=== PATIENT | male | born 1985 | race Two or more races ===

== ENCOUNTER 2019-10-02 08:56 | Observation (INO) | payer OTHER ==
[2019-10-02] MEDS ORDERED: VANCOMYCIN IV ONE ×2 (09:04)
[2019-10-02] MEDS ORDERED: Sodium Chloride 0.9% 2.5 ML Syringe FLUSH PRN ×2 (09:04→12:07)
[2019-10-02] MEDS ORDERED: Sodium Chloride 0.9% 10 ML Syringe FLUSH PRN ×2 (09:04→12:07)
[2019-10-02] MEDS ORDERED: WATER IV ONE ×2 (09:04)
[2019-10-02] MEDS ORDERED: Piperacillin/Tazobactam 4.5 GM in Sodium Chloride 0.9% 100 ML IV ONE ×2 (09:04→09:30)
[2019-10-02] MEDS ORDERED: DEXTROSE 5% IV ONE ×2 (09:04)
--- NOTE | 2019-10-02 09:19 | EDM.PDOC ---
ED [facility] GENERAL MEDICAL PROBLEM - General Chief Complaint: General Stated Complaint: INFECTION POST SURGERY Time Seen by Provider: 10/02/19 09:01 - History of Present Illness INITIAL COMMENTS - FREE TEXT/NARRATIVE: HISTORY AND PHYSICAL: History of present illness: This 34-year-old male presents emergency department complaining of right lower quadrant abdominal pain. He reports that he has an abscess there. Review of the record and historical information provided by the patient shows that he had an appendectomy done in September 01, 2019. He is postoperative day #31 from his appendectomy that was originally laparoscopic but converted to open given the size and conditions during the surgical evaluation. Per the discharge summary the patient had a fever on postoperative day #2 and was placed on intravenous levofloxacin and metronidazole and sent home on antibiotics. He had a subsequent follow-up CT scan on September 18 which I have detailed below which found that he has an intra-abdominal and intramuscular wall abscess. He returns today because he has worsening and now has an eruption of pus. He states that there were some drains placed in his wound which are no longer there. Dr. Porter was the operating surgeon and I will contact her. I have reviewed the CT scan report from September 19, 2019, it shows that the appendix was removed and the findings of the CT show right anterior abdominal wall musculature has an abscess, also a small abscess adjacent to the cecum. There is also hemangioma noted in the liver. He rates his pain as moderate to severe. Review of systems: A 10-point review of systems, other than pertinent positives and negatives as stated per HPI, is otherwise negative. Past medical history: As per history of present illness and as reviewed below otherwise noncontributory. Surgical history: As per history of present illness and as reviewed below otherwise noncontributory. Social history: No reported history of drug or alcohol abuse. Family history: As per history of present illness and as reviewed below otherwise noncontributory. Physical exam: VITAL SIGNS: Reviewed. GENERAL: Mild distress. Appears to be in acute pain HEAD: No signs of head trauma. EYES: Pupils are equal. Extraocular motions intact. EARS: Hearing grossly intact. MOUTH: Oropharynx is normal. NECK: No adenopathy, no JVD. CHEST: Chest with clear breath sounds bilaterally. No wheezes, rales, or rhonchi. CARDIAC: Regular rate and rhythm. Normal S1 and S2, without murmurs, gallops, or rubs. VASCULAR: Peripheral pulses normal and equal in all extremities. ABDOMEN: Soft, there is a surgical incision in the right lower quadrant that has purulent material erupting from it. It is not actively draining. There is surrounding mild cellulitis/erythema. The area is exquisitely tender to touch. MUSCULOSKELETAL: Good range of motion of all major joints. Extremities without clubbing, cyanosis or edema. NEUROLOGIC EXAM: Alert and oriented x 3. No focal sensory or motor deficits. Speech normal. Follows commands. PSYCHIATRIC: Mood normal. SKIN: No rash or lesions. Initial Differential Diagnosis & Plan: Abdominal wall abscess, intra-abdominal abscess, fistula The patient appears to have a significant infection. I will give initial IV fluids, draw labs and blood cultures, and provide antibiotic coverage with Zosyn and vancomycin. This should give good anaerobic, aerobic, antipseudomonal and anti-MRSA coverage. I will contact the operating surgeon. Definitive disposition and diagnosis as appropriate pending reevaluation and review of above. Right Lower Abdomen Pain Score (Numeric/FACES): 0 - Related Data Allergies Allergy/AdvReac Type Severity Reaction Status Date / Time No Known Allergies Allergy Verified 10/02/19 09:13 Home Meds: Home Meds . [No Known Home Meds] 09/01/19 [History] Past Medical History HEENT History: Reports: None Cardiovascular History: Reports: None Respiratory History: Reports: None Genitourinary History: Reports: None Musculoskeletal History: Reports: None Neurological History: Reports: None Psychiatric History: Reports: None Endocrine/Metabolic History: Reports: None Hematologic History: Reports: None Immunologic History: Reports: None Oncologic (Cancer) History: Reports: None Dermatologic History: Reports: None - Infectious Disease History Infectious Disease History: Reports: None - Past Surgical History Head Surgeries/Procedures: Reports: None GI Surgical History: Reports: Hernia, Abdominal Other GI Surgeries/Procedures: Repair 03/2019 Social & Family History - Family History Family Medical History: Noncontributory - Caffeine Use Caffeine Use: Reports: None ED ROS GENERAL - Review of Systems Review Of Systems: Unable To Obtain (noted) Reason Not Obtained: noted ED EXAM, GENERAL - Physical Exam Exam: See Below (noted) EKG INTERPRETATION EKG Interpretation Comments: 12 lead EKG interpretation Obtained: October 02, 2019 at 9:47 AM Rhythm: Sinus Rate: 93 [place]: Normal Intervals: Normal ST/T Segments: No acute ischemic changes Interpretation: Sinus Rhythm Course - Vital Signs Last Recorded V/S: Last Vital Signs Temp 96.8 F L 10/02/19 09:00 Pulse 99 10/02/19 11:19 Resp 14 10/02/19 11:19 BP 113/71 10/02/19 11:19 Pulse Ox 97 10/02/19 11:19 - Orders/Labs/Meds Orders: Active Orders 24 hr Category Date Time Status Admission Status [Patient Status] [ADT] Stat ADT 10/02/19 11:50 Ordered Cardiac Monitoring [RC] CONTINUOUS Care 10/02/19 09:06 Active EKG Documentation Completion [RC] STAT Care 10/02/19 09:04 Active Overnight Pulse Oximetry [RC] Click to Edit Care 10/02/19 09:08 Active CULTURE BLOOD [BC] Stat Lab 10/02/19 09:08 Received CULTURE BLOOD [BC] Stat Lab 10/02/19 09:30 Received Meropenem Premix [Meropenem] 500 mg Med 10/02/19 11:45 Active Premix Bag 1 bag IV Q8H Sodium Chloride 0.9% [Saline Flush] Med 10/02/19 09:04 Active 10 ml FLUSH ASDIRECTED PRN Sodium Chloride 0.9% [Saline Flush] Med 10/02/19 09:04 Active 2.5 ml FLUSH ASDIRECTED PRN Blood Culture x2 Reflex Set [OM.PC] Stat Oth 10/02/19 09:05 Ordered Pulse Oximetry Continuous Monitoring [OM.PC] Routine Oth 10/02/19 09:04 Ordered Saline Lock Insert [OM.PC] Stat Oth 10/02/19 09:05 Ordered Severe Sepsis Onset Time [OM.PC] Stat Oth 10/02/19 09:05 Ordered Medication Orders Meropenem/Sodium Chloride 500 (mg/ Premix) 50 mls @ 100 mls/hr IV Q8H EDUARD Sodium Chloride (Saline Flush) 10 ml FLUSH ASDIRECTED PRN PRN Reason: Keep Vein Open Last Admin: 10/02/19 09:26 Dose: 10 ml Sodium Chloride (Saline Flush) 2.5 ml FLUSH ASDIRECTED PRN PRN Reason: Keep Vein Open Last Admin: 10/02/19 09:26 Dose: 2.5 ml Labs: Laboratory Tests 10/02/19 10/02/19 10/02/19 Range/Units 09:08 09:08 09:08 WBC 11.65 H (4.0-11.0) K/uL RBC 5.02 (4.50-5.90) M/uL Hgb 14.5 (13.0-17.0) g/dL Hct 44.4 (38.0-50.0) % MCV 88.4 (80.0-98.0) fL MCH 28.9 (27.0-32.0) pg MCHC 32.7 (31.0-37.0) g/dL RDW Std Deviation 40.2 (28.0-62.0) fl RDW Coeff of Mabel 13 (11.0-15.0) % Plt Count 365 (150-400) K/uL MPV 10.80 (7.40-12.00) fL Neut % (Auto) 67.9 (48.0-80.0) % Lymph % (Auto) 22.7 (16.0-40.0) % Wright % (Auto) 8.8 (0.0-15.0) % Eos % (Auto) 0.3 (0.0-7.0) % Baso % (Auto) 0.3 (0.0-1.5) % Neut # (Auto) 7.9 H (1.4-5.7) K/uL Lymph # (Auto) 2.7 H (0.6-2.4) K/uL Wright # (Auto) 1.0 H (0.0-0.8) K/uL Eos # (Auto) 0.0 (0.0-0.7) K/uL Baso # (Auto) 0.0 (0.0-0.1) K/uL Nucleated RBC % 0.0 /100WBC Nucleated RBCs # 0 K/uL INR 1.22 APTT 29.9 (18.6-31.3) SEC Lactate (0.20-2.00) mmol/L Sodium 140 (136-148) mmol/L Potassium 3.7 (3.5-5.1) mmol/L Chloride 102 (98-107) mmol/L Carbon Dioxide 28.4 (21.0-32.0) mmol/L BUN 11 (7.0-18.0) mg/dL Creatinine 1.1 (0.8-1.3) mg/dL Est Cr Clr Drug Dosing 91.55 mL/min Estimated GFR (MDRD) > 60.0 ml/min Glucose 111 H (74-106) mg/dL Calcium 9.3 (8.5-10.1) mg/dL Total Bilirubin 0.5 (0.2-1.0) mg/dL AST 29 (15-37) IU/L ALT 76 H (14-63) IU/L Alkaline Phosphatase 92 (46-116) U/L C-Reactive Protein 1.20 H (0.00-0.90) mg/dL Total Protein 8.4 H (6.4-8.2) g/dL Albumin 4.1 (3.4-5.0) g/dL Globulin 4.3 H (2.6-4.0) g/dL Albumin/Globulin Ratio 1.0 (0.9-1.6) Urine Color Urine Appearance Urine pH (5.0-8.0) Ur Specific [place] (1.001-1.035) Urine Protein (NEGATIVE) mg/dL Urine Glucose (UA) (NEGATIVE) mg/dL Urine Ketones (NEGATIVE) mg/dL Urine Occult Blood (NEGATIVE) Urine Nitrite (NEGATIVE) Urine Bilirubin (NEGATIVE) Urine Urobilinogen (<2.0) EU/dL Ur Leukocyte Esterase (NEGATIVE) Urine RBC (0-2/HPF) Urine WBC (0-5/HPF) Ur Epithelial Cells (NONE-FEW) Urine Bacteria (NEGATIVE) 10/02/19 10/02/19 Range/Units 09:08 10:15 WBC (4.0-11.0) K/uL RBC (4.50-5.90) M/uL Hgb (13.0-17.0) g/dL Hct (38.0-50.0) % MCV (80.0-98.0) fL MCH (27.0-32.0) pg MCHC (31.0-37.0) g/dL RDW Std Deviation (28.0-62.0) fl RDW Coeff of Mabel (11.0-15.0) % Plt Count (150-400) K/uL MPV (7.40-12.00) fL Neut % (Auto) (48.0-80.0) % Lymph % (Auto) (16.0-40.0) % Wright % (Auto) (0.0-15.0) % Eos % (Auto) (0.0-7.0) % Baso % (Auto) (0.0-1.5) % Neut # (Auto) (1.4-5.7) K/uL Lymph # (Auto) (0.6-2.4) K/uL Wright # (Auto) (0.0-0.8) K/uL Eos # (Auto) (0.0-0.7) K/uL Baso # (Auto) (0.0-0.1) K/uL Nucleated RBC % /100WBC Nucleated RBCs # K/uL INR APTT (18.6-31.3) SEC Lactate 1.3 (0.20-2.00) mmol/L Sodium (136-148) mmol/L Potassium (3.5-5.1) mmol/L Chloride (98-107) mmol/L Carbon Dioxide (21.0-32.0) mmol/L BUN (7.0-18.0) mg/dL Creatinine (0.8-1.3) mg/dL Est Cr Clr Drug Dosing mL/min Estimated GFR (MDRD) ml/min Glucose (74-106) mg/dL Calcium (8.5-10.1) mg/dL Total Bilirubin (0.2-1.0) mg/dL AST (15-37) IU/L ALT (14-63) IU/L Alkaline Phosphatase (46-116) U/L C-Reactive Protein (0.00-0.90) mg/dL Total Protein (6.4-8.2) g/dL Albumin (3.4-5.0) g/dL Globulin (2.6-4.0) g/dL Albumin/Globulin Ratio (0.9-1.6) Urine Color YELLOW Urine Appearance CLEAR Urine pH 5.5 (5.0-8.0) Ur Specific [place] 1.025 (1.001-1.035) Urine Protein NEGATIVE (NEGATIVE) mg/dL Urine Glucose (UA) NEGATIVE (NEGATIVE) mg/dL Urine Ketones NEGATIVE (NEGATIVE) mg/dL Urine Occult Blood NEGATIVE (NEGATIVE) Urine Nitrite NEGATIVE (NEGATIVE) Urine Bilirubin NEGATIVE (NEGATIVE) Urine Urobilinogen 0.2 (<2.0) EU/dL Ur Leukocyte Esterase NEGATIVE (NEGATIVE) Urine RBC 0-1 (0-2/HPF) Urine WBC 0-1 (0-5/HPF) Ur Epithelial Cells RARE (NONE-FEW) Urine Bacteria RARE (NEGATIVE) Meds: Medications Generic Name Dose Route Start Last Admin Trade Name Freq PRN Reason Stop Dose Admin Meropenem/Sodium Chloride 500 50 mls @ 100 mls/hr 10/02/19 11:45 mg/ Premix IV Q8H EDUARD Sodium Chloride 10 ml 10/02/19 09:04 10/02/19 09:26 Saline Flush FLUSH 10 ml ASDIRECTED PRN Administration Keep Vein Open Sodium Chloride 2.5 ml 10/02/19 09:04 10/02/19 09:26 Saline Flush FLUSH 2.5 ml ASDIRECTED PRN Administration Keep Vein Open Discontinued Medications Generic Name Dose Route Start Last Admin Trade Name Freq PRN Reason Stop Dose Admin Piperacillin Sod/Tazobactam 100 mls @ 200 mls/hr 10/02/19 09:04 10/02/19 09: 27 Sod 4.5 gm/ Sodium Chloride IV 10/02/19 09:33 Not Given STAT ONE Sodium Chloride 2,400 mls @ 2,400 mls/hr 10/02/19 09:04 10/02/19 09:26 Normal Saline IV 10/02/19 10:03 2,400 mls/hr NOW STA Administration Vancomycin HCl 1.6 gm/ 250 mls @ 167 mls/hr 10/02/19 09:04 10/02/19 09:33 Dextrose/Water IV 10/02/19 10:33 Not Given ONETIME ONE Piperacillin Sod/Tazobactam 100 mls @ 200 mls/hr 10/02/19 09:30 10/02/19 09: 30 Sod 4.5 gm/ Sodium Chloride IV 10/02/19 09:59 200 mls/hr STAT ONE Administration Vancomycin HCl 1.5 gm/ Premix 300 mls @ 200.408 mls/hr 10/02/19 09:30 09:34 IV 10/02/19 10:59 200.408 mls/hr ONETIME ONE Administration Iopamidol 100 ml 10/02/19 10:45 10/02/19 10:46 Isovue Multipack-370 (76%) IVPUSH 10/02/19 10:46 100 ml ONETIME STA Administration - Re-Assessments/Exams Free Text/Narrative Re-Assessment/Exam: 10/02/19 09:[address] Porter, she is aware of the patient. She would much appreciate a CT abdomen pelvis with IV contrast. I have ordered this. She will check in on the progress of the resuscitation and evaluation after the results are back. Free Text/Narrative Re-Assessment/Exam: 10/02/19 11:52 Dr. Porter has come to the bedside and evaluated the patient, reviewed the case and will take the patient to the operating room for washout. She is asked me to give meropenem. Critical Care Note: The patient presented in critical status due to early sepsis requiring IV antibiotics The patient required rapid exam, decision making, and frequent re-evaluations during their time in the Emergency Department. Total Critical Care time exclusive of all other billable procedure time provided by myself 45 minutes Medical decision making: The patient presents to the emergency department with signs of abdominal wall abscess with concern for underlying abscess. Dr. Hernandez will take the patient to the operating room for washout. I have given IV fluids at 30 cc/kg, given initial antibiotics, tailored antibiotics to now available cultures and have evaluated him for electrolyte and metabolic abnormalities. My diagnostic impression: 1. Abdominal wall abscess 2. Intra-abdominal abscess 3. 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 Departure - Departure Time of Disposition: 11:54 Disposition: Refer to Observation Clinical Impression: Appendicitis - Discharge Information *PRESCRIPTION DRUG MONITORING PROGRAM REVIEWED*: Not Applicable *COPY OF PRESCRIPTION DRUG MONITORING REPORT IN PATIENT MINNIE: Not Applicable Referrals: PCP,None [Primary Care Provider] - Forms: ED Department Discharge Sepsis Event Note - Focused Exam Vital Signs: Vital Signs Temp Pulse Resp BP Pulse Ox 10/02/19 11:19 99 14 113/71 97 10/02/19 10:30 92 15 108/70 97 10/02/19 09:37 76 16 108/71 98 10/02/19 09:00 96.8 F L 88 15 121/73 98 Date Exam was Performed: 10/02/19 Time Exam was Performed: 11:52 - My Orders Last 24 Hours: My Active Orders 10/02/19 09:04 EKG Documentation Completion [RC] STAT Sodium Chloride 0.9% [Saline Flush] 10 ml FLUSH ASDIRECTED PRN Sodium Chloride 0.9% [Saline Flush] 2.5 ml FLUSH ASDIRECTED PRN Pulse Oximetry Continuous Monitoring [OM.PC] Routine 10/02/19 09:05 Blood Culture x2 Reflex Set [OM.PC] Stat Saline Lock Insert [OM.PC] Stat Severe Sepsis Onset Time [OM.PC] Stat 10/02/19 09:06 Cardiac Monitoring [RC] CONTINUOUS 10/02/19 09:08 Overnight Pulse Oximetry [RC] Click to Edit CULTURE BLOOD [BC] Stat 10/02/19 09:30 CULTURE BLOOD [BC] Stat 10/02/19 11:45 Meropenem Premix [Meropenem] 500 mg Premix Bag 1 bag IV Q8H 10/02/19 11:50 Admission Status [Patient Status] [ADT] Stat - Assessment/Plan Last 24 Hours: My Active Orders 10/02/19 09:04 EKG Documentation Completion [RC] STAT Sodium Chloride 0.9% [Saline Flush] 10 ml FLUSH ASDIRECTED PRN Sodium Chloride 0.9% [Saline Flush] 2.5 ml FLUSH ASDIRECTED PRN Pulse Oximetry Continuous Monitoring [OM.PC] Routine 10/02/19 09:05 Blood Culture x2 Reflex Set [OM.PC] Stat Saline Lock Insert [OM.PC] Stat Severe Sepsis Onset Time [OM.PC] Stat 10/02/19 09:06 Cardiac Monitoring [RC] CONTINUOUS 10/02/19 09:08 Overnight Pulse Oximetry [RC] Click to Edit CULTURE BLOOD [BC] Stat 10/02/19 09:30 CULTURE BLOOD [BC] Stat 10/02/19 11:45 Meropenem Premix [Meropenem] 500 mg Premix Bag 1 bag IV Q8H 10/02/19 11:50 Admission Status [Patient Status] [ADT] Stat
[2019-10-02 09:50] LABS: BLOOD UREA NITROGEN,BUN 11 mg/dL (7.0-18.0); CARBON DIOXIDE,CO2 28.4 mmol/L (21.0-32.0); CHLORIDE,CL 102 mmol/L (98-107); GLUCOSE RANDOM 111 mg/dL (74-106); POTASSIUM,K 3.7 mmol/L (3.5-5.1); SODIUM,NA 140 mmol/L (136-148)
[2019-10-02] MEDS ORDERED: Iopamidol 755 MG/ML 500 ML Multipack Bottle IVPUSH STA (10:45)
--- NOTE | 2019-10-02 10:46 | CR ---
Chest: Portable view of the chest was obtained. Comparison: No prior chest imaging is available. Heart size and mediastinum are normal. Lungs are clear with no acute parenchymal change is seen. Bony structures are grossly intact. Impression: 1. Nothing acute is seen on portable chest x-ray. Diagnostic code #1 This report was dictated in MDT
--- NOTE | 2019-10-02 11:19 | CT ---
CT abdomen and pelvis Technique: Multiple axial sections were obtained from above the dome of the diaphragm inferiorly through the pubic symphysis. Intravenous contrast was utilized. No oral contrast has been given. Comparison: Prior CT abdomen and pelvis exam of 09/19/19. Findings: Visualized lung bases show several minimal pleural-based densities on the left side which are believed to be nonacute. Hyperenhancing abnormality noted within the posterior right lobe of the liver measuring 2.0 cm which I believe represents a hemangioma. No additional abnormality seen within the liver. Spleen appears within normal limits. Adrenal glands show no nodule. Pancreas is within normal limits. Gallbladder contains no calcified gallstones. Kidneys show symmetric contrast enhancement without hydronephrosis or mass. Contrast is seen within the ureters and bladder. Aorta shows no aneurysm. No retroperitoneal adenopathy is seen. Soft tissue defect is noted within the right lower anterolateral abdominal wall. Small low density finding is seen within the subcutaneous fat measuring 2.2 cm most likely due to a small subcutaneous abscess within the fat. There is an area of enhancement within the adjacent musculature with minimal low density center. Low density center measures less than 1 cm. Findings are felt compatible with enhancement from inflammatory reaction due to small abscess. This finding has diminished in size from previous exam. Soft tissue air is noted within the subcutaneous fat. Small amount of fluid is seen within the intra-abdominal cavity adjacent to the above areas containing a small amount of air. This measures 1.6 cm is felt compatible with small residual abscess. This has diminished in size from previous exam. Calcifications are seen within the cecum presumably due to residual appendicoliths. Small tubular structure is seen to extend superiorly off the cecum which may represent the appendix if patient has had no prior appendectomy. No additional pelvic mass or adenopathy is seen. Diverticuli seen within the sigmoid colon without diverticulitis. Impression: 1. Small abscess within the subcutaneous fat within the anterolateral right lower abdominal wall. This measures about 2.2 cm. 2. Small rim-enhancing low density finding within the musculature in the same area compatible with residual abscess which has decreased in size. Low density finding measures about 1 cm. 3. Small intra-abdominal residual abscess is seen measuring 1.6 cm which also has decreased in size from prior exam. 4. Probable hemangioma within the right lobe of the liver. Diagnostic code #3 This report was dictated in MDT
[2019-10-02] MEDS ORDERED: Meropenem Premix 500 MG in Premix Bag 1 BAG IV SCH (11:45)
[2019-10-02] MEDS ORDERED: Sodium Chloride 0.9% 10 ML SDV IV PRN (12:07)
[2019-10-02] MEDS ORDERED: HYDROmorphone 2 MG/ML Syringe IVPUSH PRN (12:07)
--- NOTE | 2019-10-02 12:10 | PCM.HP.2 ---
H&P History of Present Illness - General Date of Service: 10/02/19 Admit Problem/Dx: Admission Diagnosis/Problem Admission Diagnosis/Problem Incisional abscess Source of Information: Patient History Limitations: Reports: No Limitations - History of Present Illness Initial Comments - Free Text/Narative: Patient is a 34 year old male who underwent a laparoscopic converted to open appendectomy one month ago. Two weeks after surgery he presented to my clinic with a post operative infection. He was transfered to [place], [place] for IR drain placement. He had an intra-abdominal drain placed in a tasha-colonic abscess and in his 6 cm intramuscular abscess. The bacteria was found to be resistant to multiple oral antibiotics, it was sensitive to carbapenems and zosyn. He had the drains removed with scant serosanguinous fluid. He developed pain along his incision last night one week after these were removed. It was warm and so he presented to the ER today for evaluation. His vitals were stable. WBC was elevated at 11K. He had a CT performed that showed a very small residual abscess from the last time (1.6cm). He has a subcutaneous abscess measuring 2.2 cm. The abscess that was intramuscular is scant and minimal. Right Lower Abdomen Pain Score (Numeric/FACES): 0 - Related Data Allergies/Adverse Reactions: Allergies Allergy/AdvReac Type Severity Reaction Status Date / Time No Known Allergies Allergy Verified 10/02/19 09:13 Home Medications: Home Meds . [No Known Home Meds] 09/01/19 [History] Past Medical History HEENT History: Reports: None Cardiovascular History: Reports: None Respiratory History: Reports: None Genitourinary History: Reports: None Musculoskeletal History: Reports: None Neurological History: Reports: None Psychiatric History: Reports: None Endocrine/Metabolic History: Reports: None Hematologic History: Reports: None Immunologic History: Reports: None Oncologic (Cancer) History: Reports: None Dermatologic History: Reports: None - Infectious Disease History Infectious Disease History: Reports: None - Past Surgical History Head Surgeries/Procedures: Reports: None GI Surgical History: Reports: Hernia, Abdominal Other GI Surgeries/Procedures: Repair 03/2019 Social & Family History - Family History Family Medical History: Noncontributory - Tobacco Use Smoking Status *Q: Never Smoker Second Hand Smoke Exposure: No - Caffeine Use Caffeine Use: Reports: None - Recreational Drug Use Recreational Drug Use: No H&P Review of Systems - Review of Systems: Review Of Systems: Comprehensive ROS is negative, except as noted in HPI. Exam - Exam Exam: See Below - Vital Signs Vital Signs: Last Vital Signs Temp 36.0 C L 10/02/19 09:00 Pulse 99 10/02/19 11:19 Resp 14 10/02/19 11:19 BP 113/71 10/02/19 11:19 Pulse Ox 97 10/02/19 11:19 Weight: 77.111 kg - Exam General: Alert, Oriented HEENT: Conjunctiva Clear, Mucosa Moist & Malin, Posterior Pharynx Clear Lungs: Normal Respiratory Effort Cardiovascular: Regular Rate GI/Abdominal Exam: Soft, Other (erythematous area surrounding purulent material along the mid portion of the skin) - Patient Data Lab Results Last 24 hrs: Laboratory Results - last 24 hr 10/02/19 10/02/19 10/02/19 Range/Units 09:08 09:08 09:08 WBC 11.65 H (4.0-11.0) K/uL RBC 5.02 (4.50-5.90) M/uL Hgb 14.5 (13.0-17.0) g/dL Hct 44.4 (38.0-50.0) % MCV 88.4 (80.0-98.0) fL MCH 28.9 (27.0-32.0) pg MCHC 32.7 (31.0-37.0) g/dL RDW Std Deviation 40.2 (28.0-62.0) fl RDW Coeff of Mabel 13 (11.0-15.0) % Plt Count 365 (150-400) K/uL MPV 10.80 (7.40-12.00) fL Neut % (Auto) 67.9 (48.0-80.0) % Lymph % (Auto) 22.7 (16.0-40.0) % [place] % (Auto) 8.8 (0.0-15.0) % Eos % (Auto) 0.3 (0.0-7.0) % Baso % (Auto) 0.3 (0.0-1.5) % Neut # (Auto) 7.9 H (1.4-5.7) K/uL Lymph # (Auto) 2.7 H (0.6-2.4) K/uL [place] # (Auto) 1.0 H (0.0-0.8) K/uL Eos # (Auto) 0.0 (0.0-0.7) K/uL Baso # (Auto) 0.0 (0.0-0.1) K/uL Nucleated RBC % 0.0 /100WBC Nucleated RBCs # 0 K/uL INR 1.22 APTT 29.9 (18.6-31.3) SEC Lactate (0.20-2.00) mmol/L Sodium 140 (136-148) mmol/L Potassium 3.7 (3.5-5.1) mmol/L Chloride 102 (98-107) mmol/L Carbon Dioxide 28.4 (21.0-32.0) mmol/L BUN 11 (7.0-18.0) mg/dL Creatinine 1.1 (0.8-1.3) mg/dL Est Cr Clr Drug Dosing 91.55 mL/min Estimated GFR (MDRD) > 60.0 ml/min Glucose 111 H (74-106) mg/dL Calcium 9.3 (8.5-10.1) mg/dL Total Bilirubin 0.5 (0.2-1.0) mg/dL AST 29 (15-37) IU/L ALT 76 H (14-63) IU/L Alkaline Phosphatase 92 (46-116) U/L C-Reactive Protein 1.20 H (0.00-0.90) mg/dL Total Protein 8.4 H (6.4-8.2) g/dL Albumin 4.1 (3.4-5.0) g/dL Globulin 4.3 H (2.6-4.0) g/dL Albumin/Globulin Ratio 1.0 (0.9-1.6) Urine Color Urine Appearance Urine pH (5.0-8.0) Ur Specific [place] (1.001-1.035) Urine Protein (NEGATIVE) mg/dL Urine Glucose (UA) (NEGATIVE) mg/dL Urine Ketones (NEGATIVE) mg/dL Urine Occult Blood (NEGATIVE) Urine Nitrite (NEGATIVE) Urine Bilirubin (NEGATIVE) Urine Urobilinogen (<2.0) EU/dL Ur Leukocyte Esterase (NEGATIVE) Urine RBC (0-2/HPF) Urine WBC (0-5/HPF) Ur Epithelial Cells (NONE-FEW) Urine Bacteria (NEGATIVE) 10/02/19 10/02/19 Range/Units 09:08 10:15 WBC (4.0-11.0) K/uL RBC (4.50-5.90) M/uL Hgb (13.0-17.0) g/dL Hct (38.0-50.0) % MCV (80.0-98.0) fL MCH (27.0-32.0) pg MCHC (31.0-37.0) g/dL RDW Std Deviation (28.0-62.0) fl RDW Coeff of Mabel (11.0-15.0) % Plt Count (150-400) K/uL MPV (7.40-12.00) fL Neut % (Auto) (48.0-80.0) % Lymph % (Auto) (16.0-40.0) % [place] % (Auto) (0.0-15.0) % Eos % (Auto) (0.0-7.0) % Baso % (Auto) (0.0-1.5) % Neut # (Auto) (1.4-5.7) K/uL Lymph # (Auto) (0.6-2.4) K/uL [place] # (Auto) (0.0-0.8) K/uL Eos # (Auto) (0.0-0.7) K/uL Baso # (Auto) (0.0-0.1) K/uL Nucleated RBC % /100WBC Nucleated RBCs # K/uL INR APTT (18.6-31.3) SEC Lactate 1.3 (0.20-2.00) mmol/L Sodium (136-148) mmol/L Potassium (3.5-5.1) mmol/L Chloride (98-107) mmol/L Carbon Dioxide (21.0-32.0) mmol/L BUN (7.0-18.0) mg/dL Creatinine (0.8-1.3) mg/dL Est Cr Clr Drug Dosing mL/min Estimated GFR (MDRD) ml/min Glucose (74-106) mg/dL Calcium (8.5-10.1) mg/dL Total Bilirubin (0.2-1.0) mg/dL AST (15-37) IU/L ALT (14-63) IU/L Alkaline Phosphatase (46-116) U/L C-Reactive Protein (0.00-0.90) mg/dL Total Protein (6.4-8.2) g/dL Albumin (3.4-5.0) g/dL Globulin (2.6-4.0) g/dL Albumin/Globulin Ratio (0.9-1.6) Urine Color YELLOW Urine Appearance CLEAR Urine pH 5.5 (5.0-8.0) Ur Specific [place] 1.025 (1.001-1.035) Urine Protein NEGATIVE (NEGATIVE) mg/dL Urine Glucose (UA) NEGATIVE (NEGATIVE) mg/dL Urine Ketones NEGATIVE (NEGATIVE) mg/dL Urine Occult Blood NEGATIVE (NEGATIVE) Urine Nitrite NEGATIVE (NEGATIVE) Urine Bilirubin NEGATIVE (NEGATIVE) Urine Urobilinogen 0.2 (<2.0) EU/dL Ur Leukocyte Esterase NEGATIVE (NEGATIVE) Urine RBC 0-1 (0-2/HPF) Urine WBC 0-1 (0-5/HPF) Ur Epithelial Cells RARE (NONE-FEW) Urine Bacteria RARE (NEGATIVE) Result Diagrams: 10/02/19 09:08 10/02/19 09:08 Sepsis Event Note - Evaluation Sepsis Screening Result: No Definite Risk - Focused Exam Vital Signs: Vital Signs Temp Pulse Resp BP Pulse Ox 10/02/19 11:19 99 14 113/71 97 10/02/19 10:30 92 15 108/70 97 10/02/19 09:37 76 16 108/71 98 10/02/19 09:00 36.0 C L 88 15 121/73 98 Date Exam was Performed: 10/02/19 Time Exam was Performed: 12:20 - Problem List (1) Incisional abscess SNOMED Code(s): 17387396 ICD Code: T81.49XA - INFECTION FOLLOWING A PROCEDURE, OTHER SURGICAL SITE, INIT Status: Acute Current Visit: Yes (2) Postoperative infection SNOMED Code(s): 39370191 ICD Code: T81.40XA - INFECTION FOLLOWING A PROCEDURE, UNSPECIFIED, INIT Status: Acute Current Visit: Yes Problem List Initiated/Reviewed/Updated: Yes Orders Last 24hrs: Active Orders 24 hr Category Date Time Status Patient Status [ADT] Routine ADT 10/02/19 12:07 Ordered Cardiac Monitoring [RC] CONTINUOUS Care 10/02/19 09:06 Active EKG Documentation Completion [RC] STAT Care 10/02/19 09:04 Active Intake and Output [RC] QSHIFT Care 10/02/19 12:08 Ordered Overnight Pulse Oximetry [RC] Click to Edit Care 10/02/19 09:08 Active Oxygen Therapy [RC] PRN Care 10/02/19 12:07 Ordered RT Incentive Spirometry [RC] Q1HWA Care 10/02/19 12:07 Ordered Up ad Karis [RC] ASDIRECTED Care 10/02/19 12:07 Ordered Vital Signs [RC] PER UNIT ROUTINE Care 10/02/19 12:07 Ordered Regular Diet [DIET] Diet 10/02/19 Dinner Ordered CBC W/O DIFF,HEMOGRAM [HEME] AM Lab 10/03/19 05:11 Ordered CULTURE BLOOD [BC] Stat Lab 10/02/19 09:08 Received CULTURE BLOOD [BC] Stat Lab 10/02/19 09:30 Received Acetaminophen/oxyCODONE [Percocet 325-5 MG] Med 10/02/19 12:07 Ordered 2 tab PO Q4H PRN HYDROmorphone [Dilaudid] Med 10/02/19 12:07 Ordered 0.5 mg IVPUSH Q1H PRN Meropenem Premix [Meropenem] 500 mg Med 10/02/19 11:45 Active Premix Bag 1 bag IV Q8H Sodium Chloride 0.9% @ 125 MLS/HR (1000ml) Med 10/02/19 12:15 Ordered Sodium Chloride 0.9% [Normal Saline] 1,000 ml IV ASDIRECTED Sodium Chloride 0.9% [Normal Saline] Med 10/02/19 12:07 Ordered 10 ml IV ASDIRECTED PRN Sodium Chloride 0.9% [Saline Flush] Med 10/02/19 09:04 Active 10 ml FLUSH ASDIRECTED PRN Sodium Chloride 0.9% [Saline Flush] Med 10/02/19 12:07 Ordered 10 ml FLUSH ASDIRECTED PRN Sodium Chloride 0.9% [Saline Flush] Med 10/02/19 09:04 Active 2.5 ml FLUSH ASDIRECTED PRN Sodium Chloride 0.9% [Saline Flush] Med 10/02/19 12:07 Ordered 2.5 ml FLUSH ASDIRECTED PRN Blood Culture x2 Reflex Set [OM.PC] Stat Ot 10/02/19 09:05 Ordered Peripheral IV Insertion Adult [OM.PC] Urgent Oth 10/02/19 12:07 Ordered Pulse Oximetry Continuous Monitoring [OM.PC] Routine Ot 10/02/19 09:04 Ordered Saline Lock Insert [OM.PC] Stat Ot 10/02/19 09:05 Ordered Severe Sepsis Onset Time [OM.PC] Stat Ot 10/02/19 09:05 Ordered Resuscitation Status Routine Resus Stat 10/02/19 12:07 Ordered Medication Orders Meropenem/Sodium Chloride 500 (mg/ Premix) 50 mls @ 100 mls/hr IV Q8H EDUARD Sodium Chloride (Saline Flush) 10 ml FLUSH ASDIRECTED PRN PRN Reason: Keep Vein Open Last Admin: 10/02/19 09:26 Dose: 10 ml Sodium Chloride (Saline Flush) 2.5 ml FLUSH ASDIRECTED PRN PRN Reason: Keep Vein Open Last Admin: 10/02/19 09:26 Dose: 2.5 ml Assessment/Plan Comment:: Patient will be taken to the OR for an incision and drainage of this superficial abscess. I explained that he will have an open wound afterwards that will need daily dressing changes. Worst case scenario; should I find a bigger abscess or a connection to the intra-abdominal cavity I will explore the wound and perform whatever procedure is necessary to repair the area. The patient and I discussed the need for IV antibiotics afterwards as well as po antibiotics to follow. We discussed the risks of bleeding or further infection. He verbalized understanding and wishes to proceed.
--- NOTE | 2019-10-02 12:11 | PCM.PREANE ---
Preanesthetic Assessment - Anesthesia/Transfusion/Family Hx Anesthesia History: Prior Anesthesia Without Reaction Family History of Anesthesia Reaction: No Transfusion History: No Prior Transfusion(s) - Review of Systems General: No Symptoms Pulmonary: No Symptoms Cardiovascular: No Symptoms Gastrointestinal: Abdominal Pain Neurological: No Symptoms Other: Reports: None - Physical Assessment NPO Status Date: 10/01/19 Vital Signs: Last Vital Signs Temp 96.8 F L 10/02/19 09:00 Pulse 99 10/02/19 11:19 Resp 14 10/02/19 11:19 BP 113/71 10/02/19 11:19 Pulse Ox 97 10/02/19 11:19 Height: 5 ft 8 in Weight: 77.111 kg ASA Class: 2E Mental Status: Alert & Oriented x3 Airway Class: Mallampati = 2 ROM/Head Extension: Full Lungs: Other (defered) Cardiovascular: Other (defered) - Lab Values: Laboratory Last Values WBC 11.65 K/uL (4.0-11.0) H 10/02/19 09:08 RBC 5.02 M/uL (4.50-5.90) 10/02/19 09:08 Hgb 14.5 g/dL (13.0-17.0) 10/02/19 09:08 Hct 44.4 % (38.0-50.0) 10/02/19 09:08 MCV 88.4 fL (80.0-98.0) 10/02/19 09:08 MCH 28.9 pg (27.0-32.0) 10/02/19 09:08 MCHC 32.7 g/dL (31.0-37.0) 10/02/19 09:08 RDW Std Deviation 40.2 fl (28.0-62.0) 10/02/19 09:08 RDW Coeff of Mabel 13 % (11.0-15.0) 10/02/19 09:08 Plt Count 365 K/uL (150-400) 10/02/19 09:08 MPV 10.80 fL (7.40-12.00) 10/02/19 09:08 Neut % (Auto) 67.9 % (48.0-80.0) 10/02/19 09:08 Lymph % (Auto) 22.7 % (16.0-40.0) 10/02/19 09:08 [place] % (Auto) 8.8 % (0.0-15.0) 10/02/19 09:08 Eos % (Auto) 0.3 % (0.0-7.0) 10/02/19 09:08 Baso % (Auto) 0.3 % (0.0-1.5) 10/02/19 09:08 Neut # (Auto) 7.9 K/uL (1.4-5.7) H 10/02/19 09:08 Lymph # (Auto) 2.7 K/uL (0.6-2.4) H 10/02/19 09:08 [place] # (Auto) 1.0 K/uL (0.0-0.8) H 10/02/19 09:08 Eos # (Auto) 0.0 K/uL (0.0-0.7) 10/02/19 09:08 Baso # (Auto) 0.0 K/uL (0.0-0.1) 10/02/19 09:08 Nucleated RBC % 0.0 /100WBC 10/02/19 09:08 Nucleated RBCs # 0 K/uL 10/02/19 09:08 INR 1.22 10/02/19 09:08 APTT 29.9 SEC (18.6-31.3) 10/02/19 09:08 Lactate 1.3 mmol/L (0.20-2.00) 10/02/19 09:08 Sodium 140 mmol/L (136-148) 10/02/19 09:08 Potassium 3.7 mmol/L (3.5-5.1) 10/02/19 09:08 Chloride 102 mmol/L (98-107) 10/02/19 09:08 Carbon Dioxide 28.4 mmol/L (21.0-32.0) 10/02/19 09:08 BUN 11 mg/dL (7.0-18.0) 10/02/19 09:08 Creatinine 1.1 mg/dL (0.8-1.3) 10/02/19 09:08 Est Cr Clr Drug Dosing 91.55 mL/min 10/02/19 09:08 Estimated GFR (MDRD) > 60.0 ml/min 10/02/19 09:08 Glucose 111 mg/dL (74-106) H 10/02/19 09:08 Calcium 9.3 mg/dL (8.5-10.1) 10/02/19 09:08 Total Bilirubin 0.5 mg/dL (0.2-1.0) 10/02/19 09:08 AST 29 IU/L (15-37) 10/02/19 09:08 ALT 76 IU/L (14-63) H 10/02/19 09:08 Alkaline Phosphatase 92 U/L (46-116) 10/02/19 09:08 C-Reactive Protein 1.20 mg/dL (0.00-0.90) H 10/02/19 09:08 Total Protein 8.4 g/dL (6.4-8.2) H 10/02/19 09:08 Albumin 4.1 g/dL (3.4-5.0) 10/02/19 09:08 Globulin 4.3 g/dL (2.6-4.0) H 10/02/19 09:08 Albumin/Globulin Ratio 1.0 (0.9-1.6) 10/02/19 09:08 Urine Color YELLOW 10/02/19 10:15 Urine Appearance CLEAR 10/02/19 10:15 Urine pH 5.5 (5.0-8.0) 10/02/19 10:15 Ur Specific [place] 1.025 (1.001-1.035) 10/02/19 10:15 Urine Protein NEGATIVE mg/dL (NEGATIVE) 10/02/19 10:15 Urine Glucose (UA) NEGATIVE mg/dL (NEGATIVE) 10/02/19 10:15 Urine Ketones NEGATIVE mg/dL (NEGATIVE) 10/02/19 10:15 Urine Occult Blood NEGATIVE (NEGATIVE) 10/02/19 10:15 Urine Nitrite NEGATIVE (NEGATIVE) 10/02/19 10:15 Urine Bilirubin NEGATIVE (NEGATIVE) 10/02/19 10:15 Urine Urobilinogen 0.2 EU/dL (<2.0) 10/02/19 10:15 Ur Leukocyte Esterase NEGATIVE (NEGATIVE) 10/02/19 10:15 Urine RBC 0-1 (0-2/HPF) 10/02/19 10:15 Urine WBC 0-1 (0-5/HPF) 10/02/19 10:15 Ur Epithelial Cells RARE (NONE-FEW) 10/02/19 10:15 Urine Bacteria RARE (NEGATIVE) 10/02/19 10:15 - Allergies Allergies/Adverse Reactions: Allergies Allergy/AdvReac Type Severity Reaction Status Date / Time No Known Allergies Allergy Verified 10/02/19 09:13 - Anesthesia Plan Pre-Op Medication Ordered: Other (meropenum) - Acknowledgements Anesthesia Type Planned: General Anesthesia Pt an Appropriate Candidate for the Planned Anesthesia: Yes Alternatives and Risks of Anesthesia Discussed w Pt/Guardian: Yes Pt/Guardian Understands and Agrees with Anesthesia Plan: Yes Additional Comments: PMH: abd wall abcess, multidrug resistant organism, NKDA, NPO solids last pm, liquids 7 am today PLAN: GET, contact precautions. COVID 19 test pending PreAnesthesia Questionnaire HEENT History: Reports: None Cardiovascular History: Reports: None Respiratory History: Reports: None Genitourinary History: Reports: None Musculoskeletal History: Reports: None Neurological History: Reports: None Psychiatric History: Reports: None Endocrine/Metabolic History: Reports: None Hematologic History: Reports: None Immunologic History: Reports: None Oncologic (Cancer) History: Reports: None Dermatologic History: Reports: None - Infectious Disease History Infectious Disease History: Reports: None - Past Surgical History Head Surgeries/Procedures: Reports: None GI Surgical History: Reports: Hernia, Abdominal Other GI Surgeries/Procedures: Repair 03/2019 - SUBSTANCE USE Smoking Status *Q: Never Smoker Second Hand Smoke Exposure: No Recreational Drug Use History: No - HOME MEDS Home Medications: Home Meds . [No Known Home Meds] 09/01/19 [History] - CURRENT (IN HOUSE) MEDS Current Meds: Current Medications Meropenem/Sodium Chloride 500 (mg/ Premix) 50 mls @ 100 mls/hr IV Q8H EDUARD Sodium Chloride (Saline Flush) 10 ml FLUSH ASDIRECTED PRN PRN Reason: Keep Vein Open Last Admin: 10/02/19 09:26 Dose: 10 ml Sodium Chloride (Saline Flush) 2.5 ml FLUSH ASDIRECTED PRN PRN Reason: Keep Vein Open Last Admin: 10/02/19 09:26 Dose: 2.5 ml Discontinued Medications Piperacillin Sod/Tazobactam (Sod 4.5 gm/ Sodium Chloride) 100 mls @ 200 mls/hr IV STAT ONE Stop: 10/02/19 09:33 Last Admin: 10/02/19 09:27 Dose: Not Given Sodium Chloride (Normal Saline) 2,400 mls @ 2,400 mls/hr IV NOW STA Stop: 10/02/19 10:03 Last Admin: 10/02/19 09:26 Dose: 2,400 mls/hr Vancomycin HCl 1.6 gm/ (Dextrose/Water) 250 mls @ 167 mls/hr IV ONETIME ONE Stop: 10/02/19 10:33 Last Admin: 10/02/19 09:33 Dose: Not Given Piperacillin Sod/Tazobactam (Sod 4.5 gm/ Sodium Chloride) 100 mls @ 200 mls/hr IV STAT ONE Stop: 10/02/19 09:59 Last Admin: 10/02/19 09:30 Dose: 200 mls/hr Vancomycin HCl 1.5 gm/ Premix 300 mls @ 200.408 mls/hr IV ONETIME ONE Stop: 10/02/19 10:59 Last Admin: 10/02/19 09:34 Dose: 200.408 mls/hr Iopamidol (Isovue Multipack-370 (76%)) 100 ml IVPUSH ONETIME STA Stop: 10/02/19 10:46 Last Admin: 10/02/19 10:46 Dose: 100 ml
[2019-10-02] MEDS ORDERED: fentaNYL 100 MCG/2 ML SDV ONE (12:20)
[2019-10-02] MEDS ORDERED: Propofol 200 MG/20 ML SDV ONE (12:20)
[2019-10-02] MEDS ORDERED: Bupivacaine 0.5% 30 ML SDV ONE (12:20)
[2019-10-02] MEDS ORDERED: Midazolam 1 MG/ML 2 ML SDV ONE (12:20)
[2019-10-02] MEDS ORDERED: Ondansetron 4 MG/2 ML SDV ONE (12:20)
[2019-10-02] MEDS ORDERED: Ketorolac 30 MG/ML SDV ONE (12:21)
[2019-10-02] MEDS ORDERED: Glycopyrrolate 0.2 MG/ML SDV ONE (12:21)
[2019-10-02] MEDS ORDERED: Sugammadex Sodium 200 MG/2 ML VIAL ONE (12:22)
[2019-10-02] MEDS ORDERED: HYDROmorphone 2 MG/ML Syringe ONE (12:45)
--- NOTE | 2019-10-02 14:26 | PCM.OPNOTE ---
- General Post-Op/Procedure Note Date of Surgery/Procedure: 10/02/19 Operative Procedure(s): Incision and drainage incisional abscess Findings: Main abscess cavity was superficial, in the subcutaneous fat under the incision , and measured 5 x 1 x 2 cm in size. Under this, in the muscular layer, was another abscess cavity that measured 3 x 2 x 2 cm in size. This did not appear to communicate with the intraabdominal cavity and fascia felt intact beneath. Pre Op Diagnosis: Incisional abscess Post-Op Diagnosis: same Anesthesia Technique: General ET Tube Primary Surgeon: Sera Porter Fluid Replacement, Intraop: 1,100 EBL in mLs: 20 Condition: Stable
--- NOTE | 2019-10-02 14:37 | PCM.POSTAN ---
POST ANESTHESIA ASSESSMENT - MENTAL STATUS Mental Status: Alert, Oriented - VITAL SIGNS Vital Signs: Last Vital Signs Temp 96.8 F L 10/02/19 09:00 Pulse 98 10/02/19 13:00 Resp 15 10/02/19 13:00 BP 105/77 10/02/19 13:00 Pulse Ox 99 10/02/19 13:00 - RESPIRATORY Respiratory Status: Respiratory Rate WNL, Airway Patent, O2 Saturation Stable - CARDIOVASCULAR CV Status: Pulse Rate WNL, Blood Pressure Stable - GASTROINTESTINAL GI Status: No Symptoms - POST OP HYDRATION Hydration Status: Adequate & Stable
[2019-10-02] MEDS: Sodium Chloride 0.9% 1,000 ML IV SCH (15:13)
[2019-10-02] MEDS: Meropenem 500 MG in Sodium Chloride 0.9% 50 ML IV SCH ×2 (15:53→22:59)
--- NOTE | 2019-10-02 19:24 | OR ---
SURGEON: SERA PORTER MD DATE OF PROCEDURE: 10/02/2019 PREOPERATIVE DIAGNOSIS: Incisional abscess. POSTOPERATIVE DIAGNOSIS: Incisional abscess. PROCEDURE PERFORMED: Incision and drainage, incisional abscess. PRIMARY SURGEON: Sera Porter MD ANESTHESIA: General endotracheal anesthesia. FLUIDS: 1100 mL of crystalloid. ESTIMATED BLOOD LOSS: 20 mL. FINDINGS: Main abscess cavity was superficial in the subcutaneous fat under the incision and measured 5 x 1 x 2 cm in size. Under this, in the muscular layer was another smaller abscess cavity that measured 3 x 2 x 2 cm in size. This did not appear to communicate with the intraabdominal cavity and the fascia felt intact beneath. No evidence of bowel contents. COMPLICATIONS: None. INDICATIONS: The patient is a 34-year-old male who underwent a laparoscopic, converted to open, appendectomy 1 month ago. Two weeks after his procedure, he developed an intramuscular abscess along his previous incision site as well as a small abscess intra-abdominally next to his staple line. These were drained via Interventional Radiology. He was given oral antibiotics. The drains were eventually removed. The initial cultures showed a very resistant E. coli strain that was only sensitive to the Zosyn and carbapenems. Yesterday, the patient began to have pain and swelling along his incision again. He presented to the emergency room for evaluation. He was found to have a mildly elevated white count and CT scan of the abdomen and pelvis showed a small residual abscess next to his staple line, but a larger subcutaneous abscess along his incision above the area where the muscular abscess was. The patient and I discussed the need to perform an incision and drainage in the operating room to obtain adequate washout and drainage. I explained the need for dressing changes afterwards. I described the procedure to the patient. I also consented him for a possible exploratory laparotomy should I encounter any unforeseen complications while in the operating room that will require me to open up the abdomen and take a look at the appendectomy site. We discussed the risks as well, and he verbalized understanding and wished to proceed. PROCEDURE IN DETAIL: The patient was brought into the OR and placed on the OR table in supine position. A time-out was completed verifying the patient's name, age, date of , allergies, and procedure to be performed. General endotracheal anesthesia was induced. The abdomen was prepped and draped in usual standard fashion. I inspected the patient's wound. Even with the prep, the wound started to drain white purulent material. This was sent for Gram stain, anaerobic and aerobic cultures. Then, using a 15 blade, I unroofed the abscess cavity. There was a large amount of superficial purulent material in the superficial abscess cavity. I suctioned all this out and irrigated the wound. I then explored the base of this abscess. There was a small opening at the base of the abscess. I placed my suction catheter into this and it seemed to track medially. I gently, but bluntly opened this deeper abscess cavity. It was smaller in size and measured 3 x 2 x 2 cm. It did not appear to communicate with the intraabdominal cavity and the fascia felt intact beneath it. There was no fecal material that I noted within the wound. The wound was copiously irrigated. I then packed the wound with moistened Kerlix gauze and covered it with dry 4 x 4 dressings and an ABD pad, which were secured to the patient using tape. He tolerated the procedure well and was transferred to the PACU in stable condition. All counts were complete and correct at the end of the case. CHRISTIANO / SILVA /[id number]
[2019-10-02] MEDS: Acetaminophen/oxyCODONE 325-5 MG Tab PO PRN (22:53)
[2019-10-03] MEDS: Sodium Chloride 0.9% 1,000 ML IV SCH ×2 (00:12→07:58)
[2019-10-03] MEDS: Meropenem 500 MG in Sodium Chloride 0.9% 50 ML IV SCH (07:04)
--- NOTE | 2019-10-03 07:24 | PCM.DCSUM1 ---
Discharge Summary - Hospital Course Free Text/Narrative:: Patient is a 34 year old male who presented with an incisional abscess and post operative infection. He underwent a laparoscopic converted to open appendectomy one month ago. He presented 2 weeks after surgery with an abscess next to his staple line in the cecum and a muscular abscess. These were drained percutaneously in [place], [place]. He was placed on oral antibiotics afterwards and had the drains removed when the drainage was minimal. He presented to the ER yesterday with pain warmth and swelling at the incision site. CT scan showed a small residual abscess intra-abdominally and a 2.2 cm subcutaneous abscess. On physical exam I could see fluctuance and purulent material along the incision. He was taken to the OR. The abscess was opened up and was found to mainly be in the subcutaneous fat layer with a small connection to the previous intra- muscular abscess. His cultures show a gram negative jasmyne. This is consistent with his cultures in [place] which show E.Coli which is resistant to multiple drugs but sensitive to carbapenems. He was placed on meropenem overnight. He had little to no pain and remained stable. He had a normal WBC this morning. He underwent his first dressing change. His wound looked healthy with some granulation tissue. He was given dressing change instructions and discharged home. - Discharge Data Discharge Date: 10/03/19 Discharge Disposition: Home, Self-Care 01 Condition: Stable - Referral to Home Health Primary Care Physician: PCP None - Discharge Diagnosis/Problem(s) (1) Incisional abscess SNOMED Code(s): 39823926 ICD Code: T81.49XA - INFECTION FOLLOWING A PROCEDURE, OTHER SURGICAL SITE, INIT Status: Acute Current Visit: Yes (2) Postoperative infection SNOMED Code(s): 65698411 ICD Code: T81.40XA - INFECTION FOLLOWING A PROCEDURE, UNSPECIFIED, INIT Status: Acute Current Visit: Yes - Patient Summary/Data Operative Procedure(s) Performed: Incision and drainage incisional abscess - Patient Instructions Diet: Regular Diet as Tolerated Activity: No Lifting Over 20 Pounds (for 2 weeks ), Rest and Relax Today Driving: Do Not Drive (while on narcotic pain medications ) Showering/Bathing: May Shower Notify Provider of: Fever, Increased Pain, Swelling and Redness, Drainage (pus) - Discharge Plan *PRESCRIPTION DRUG MONITORING PROGRAM REVIEWED*: Not Applicable *COPY OF PRESCRIPTION DRUG MONITORING REPORT IN PATIENT MINNIE: Not Applicable Home Medications: Home Meds . [No Known Home Meds] 09/01/19 [History] Patient Handouts: Ertapenem injection, Skin Abscess, [id number], Incision and Drainage, Care After Referrals: Sera Porter MD [Physician] - 10/07/19 9:45 am - Discharge Summary/Plan Comment DC Time >30 min.: Yes - General Info Date of Service: 10/03/19 Functional Status: Reports: Pain Controlled, Tolerating Diet, Ambulating, Urinating - Review of Systems General: Reports: No Symptoms Pulmonary: Reports: No Symptoms Cardiovascular: Reports: No Symptoms Gastrointestinal: Reports: No Symptoms Musculoskeletal: Reports: No Symptoms Skin: Reports: No Symptoms - Patient Data Vitals - Most Recent: Last Vital Signs Temp 36.9 C 10/03/19 04:00 Pulse 80 10/03/19 04:00 Resp 14 10/03/19 04:00 BP 103/61 10/03/19 04:00 Pulse Ox 97 10/03/19 04:00 Weight - Most Recent: 77.111 kg I&O - Last 24 hours: Intake & Output 10/02/19 10/03/19 10/03/19 22:59 06:59 14:59 Intake Total 680 2080 Output Total 480 1100 Balance 200 980 Lab Results - Last 24 hrs: Laboratory Results - last 24 hr 10/02/19 10/02/19 10/02/19 Range/Units 09:08 09:08 09:08 WBC 11.65 H (4.0-11.0) K/uL RBC 5.02 (4.50-5.90) M/uL Hgb 14.5 (13.0-17.0) g/dL Hct 44.4 (38.0-50.0) % MCV 88.4 (80.0-98.0) fL MCH 28.9 (27.0-32.0) pg MCHC 32.7 (31.0-37.0) g/dL RDW Std Deviation 40.2 (28.0-62.0) fl RDW Coeff of Mabel 13 (11.0-15.0) % Plt Count 365 (150-400) K/uL MPV 10.80 (7.40-12.00) fL Neut % (Auto) 67.9 (48.0-80.0) % Lymph % (Auto) 22.7 (16.0-40.0) % Upton % (Auto) 8.8 (0.0-15.0) % Eos % (Auto) 0.3 (0.0-7.0) % Baso % (Auto) 0.3 (0.0-1.5) % Neut # (Auto) 7.9 H (1.4-5.7) K/uL Lymph # (Auto) 2.7 H (0.6-2.4) K/uL Upton # (Auto) 1.0 H (0.0-0.8) K/uL Eos # (Auto) 0.0 (0.0-0.7) K/uL Baso # (Auto) 0.0 (0.0-0.1) K/uL Nucleated RBC % 0.0 /100WBC Nucleated RBCs # 0 K/uL INR 1.22 APTT 29.9 (18.6-31.3) SEC Lactate (0.20-2.00) mmol/L Sodium 140 (136-148) mmol/L Potassium 3.7 (3.5-5.1) mmol/L Chloride 102 (98-107) mmol/L Carbon Dioxide 28.4 (21.0-32.0) mmol/L BUN 11 (7.0-18.0) mg/dL Creatinine 1.1 (0.8-1.3) mg/dL Est Cr Clr Drug Dosing 91.55 mL/min Estimated GFR (MDRD) > 60.0 ml/min Glucose 111 H (74-106) mg/dL Calcium 9.3 (8.5-10.1) mg/dL Total Bilirubin 0.5 (0.2-1.0) mg/dL AST 29 (15-37) IU/L ALT 76 H (14-63) IU/L Alkaline Phosphatase 92 (46-116) U/L C-Reactive Protein 1.20 H (0.00-0.90) mg/dL Total Protein 8.4 H (6.4-8.2) g/dL Albumin 4.1 (3.4-5.0) g/dL Globulin 4.3 H (2.6-4.0) g/dL Albumin/Globulin Ratio 1.0 (0.9-1.6) Urine Color Urine Appearance Urine pH (5.0-8.0) Ur Specific Hudson (1.001-1.035) Urine Protein (NEGATIVE) mg/dL Urine Glucose (UA) (NEGATIVE) mg/dL Urine Ketones (NEGATIVE) mg/dL Urine Occult Blood (NEGATIVE) Urine Nitrite (NEGATIVE) Urine Bilirubin (NEGATIVE) Urine Urobilinogen (<2.0) EU/dL Ur Leukocyte Esterase (NEGATIVE) Urine RBC (0-2/HPF) Urine WBC (0-5/HPF) Ur Epithelial Cells (NONE-FEW) Urine Bacteria (NEGATIVE) SARS-CoV-2 RNA (RT-PCR) (NEGATIVE) 10/02/19 10/02/19 10/02/19 Range/Units 09:08 10:15 12:56 WBC (4.0-11.0) K/uL RBC (4.50-5.90) M/uL Hgb (13.0-17.0) g/dL Hct (38.0-50.0) % MCV (80.0-98.0) fL MCH (27.0-32.0) pg MCHC (31.0-37.0) g/dL RDW Std Deviation (28.0-62.0) fl RDW Coeff of Mabel (11.0-15.0) % Plt Count (150-400) K/uL MPV (7.40-12.00) fL Neut % (Auto) (48.0-80.0) % Lymph % (Auto) (16.0-40.0) % Upton % (Auto) (0.0-15.0) % Eos % (Auto) (0.0-7.0) % Baso % (Auto) (0.0-1.5) % Neut # (Auto) (1.4-5.7) K/uL Lymph # (Auto) (0.6-2.4) K/uL Upton # (Auto) (0.0-0.8) K/uL Eos # (Auto) (0.0-0.7) K/uL Baso # (Auto) (0.0-0.1) K/uL Nucleated RBC % /100WBC Nucleated RBCs # K/uL INR APTT (18.6-31.3) SEC Lactate 1.3 (0.20-2.00) mmol/L Sodium (136-148) mmol/L Potassium (3.5-5.1) mmol/L Chloride (98-107) mmol/L Carbon Dioxide (21.0-32.0) mmol/L BUN (7.0-18.0) mg/dL Creatinine (0.8-1.3) mg/dL Est Cr Clr Drug Dosing mL/min Estimated GFR (MDRD) ml/min Glucose (74-106) mg/dL Calcium (8.5-10.1) mg/dL Total Bilirubin (0.2-1.0) mg/dL AST (15-37) IU/L ALT (14-63) IU/L Alkaline Phosphatase (46-116) U/L C-Reactive Protein (0.00-0.90) mg/dL Total Protein (6.4-8.2) g/dL Albumin (3.4-5.0) g/dL Globulin (2.6-4.0) g/dL Albumin/Globulin Ratio (0.9-1.6) Urine Color YELLOW Urine Appearance CLEAR Urine pH 5.5 (5.0-8.0) Ur Specific Hudson 1.025 (1.001-1.035) Urine Protein NEGATIVE (NEGATIVE) mg/dL Urine Glucose (UA) NEGATIVE (NEGATIVE) mg/dL Urine Ketones NEGATIVE (NEGATIVE) mg/dL Urine Occult Blood NEGATIVE (NEGATIVE) Urine Nitrite NEGATIVE (NEGATIVE) Urine Bilirubin NEGATIVE (NEGATIVE) Urine Urobilinogen 0.2 (<2.0) EU/dL Ur Leukocyte Esterase NEGATIVE (NEGATIVE) Urine RBC 0-1 (0-2/HPF) Urine WBC 0-1 (0-5/HPF) Ur Epithelial Cells RARE (NONE-FEW) Urine Bacteria RARE (NEGATIVE) SARS-CoV-2 RNA (RT-PCR) NEGATIVE (NEGATIVE) 10/03/19 Range/Units 05:50 WBC 6.07 (4.0-11.0) K/uL RBC 4.00 L (4.50-5.90) M/uL Hgb 11.3 L (13.0-17.0) g/dL Hct 35.7 L (38.0-50.0) % MCV 89.3 (80.0-98.0) fL MCH 28.3 (27.0-32.0) pg MCHC 31.7 (31.0-37.0) g/dL RDW Std Deviation 42.5 (28.0-62.0) fl RDW Coeff of Mabel 13 (11.0-15.0) % Plt Count 276 (150-400) K/uL MPV 10.60 (7.40-12.00) fL Neut % (Auto) (48.0-80.0) % Lymph % (Auto) (16.0-40.0) % Upton % (Auto) (0.0-15.0) % Eos % (Auto) (0.0-7.0) % Baso % (Auto) (0.0-1.5) % Neut # (Auto) (1.4-5.7) K/uL Lymph # (Auto) (0.6-2.4) K/uL Upton # (Auto) (0.0-0.8) K/uL Eos # (Auto) (0.0-0.7) K/uL Baso # (Auto) (0.0-0.1) K/uL Nucleated RBC % 0.0 /100WBC Nucleated RBCs # 0 K/uL INR APTT (18.6-31.3) SEC Lactate (0.20-2.00) mmol/L Sodium (136-148) mmol/L Potassium (3.5-5.1) mmol/L Chloride (98-107) mmol/L Carbon Dioxide (21.0-32.0) mmol/L BUN (7.0-18.0) mg/dL Creatinine (0.8-1.3) mg/dL Est Cr Clr Drug Dosing mL/min Estimated GFR (MDRD) ml/min Glucose (74-106) mg/dL Calcium (8.5-10.1) mg/dL Total Bilirubin (0.2-1.0) mg/dL AST (15-37) IU/L ALT (14-63) IU/L Alkaline Phosphatase (46-116) U/L C-Reactive Protein (0.00-0.90) mg/dL Total Protein (6.4-8.2) g/dL Albumin (3.4-5.0) g/dL Globulin (2.6-4.0) g/dL Albumin/Globulin Ratio (0.9-1.6) Urine Color Urine Appearance Urine pH (5.0-8.0) Ur Specific Hudson (1.001-1.035) Urine Protein (NEGATIVE) mg/dL Urine Glucose (UA) (NEGATIVE) mg/dL Urine Ketones (NEGATIVE) mg/dL Urine Occult Blood (NEGATIVE) Urine Nitrite (NEGATIVE) Urine Bilirubin (NEGATIVE) Urine Urobilinogen (<2.0) EU/dL Ur Leukocyte Esterase (NEGATIVE) Urine RBC (0-2/HPF) Urine WBC (0-5/HPF) Ur Epithelial Cells (NONE-FEW) Urine Bacteria (NEGATIVE) SARS-CoV-2 RNA (RT-PCR) (NEGATIVE) SABAS Results - Last 24 hrs: Microbiology 10/02/19 14:33 Gram Stain - Preliminary Abdomen - Right Lower Med Orders - Current: Current Medications Hydromorphone HCl (Dilaudid) 0.5 mg IVPUSH Q1H PRN PRN Reason: Pain (severe 7-10) Sodium Chloride (Normal Saline) 1,000 mls @ 125 mls/hr IV ASDIRECTED EDUARD Last Admin: 10/03/19 00:12 Dose: 125 mls/hr Ertapenem 1 gm/ Sodium (Chloride) 50 mls @ 100 mls/hr IV Q24H EDUARD Oxycodone/Acetaminophen (Percocet 325-5 Mg) 2 tab PO Q4H PRN PRN Reason: Pain (moderate 4-6) Last Admin: 10/02/19 22:53 Dose: 2 tab Sodium Chloride (Saline Flush) 10 ml FLUSH ASDIRECTED PRN PRN Reason: Keep Vein Open Last Admin: 10/02/19 09:26 Dose: 10 ml Sodium Chloride (Saline Flush) 2.5 ml FLUSH ASDIRECTED PRN PRN Reason: Keep Vein Open Last Admin: 10/02/19 09:26 Dose: 2.5 ml Sodium Chloride (Saline Flush) 10 ml FLUSH ASDIRECTED PRN PRN Reason: Keep Vein Open Sodium Chloride (Saline Flush) 2.5 ml FLUSH ASDIRECTED PRN PRN Reason: Keep Vein Open Sodium Chloride (Normal Saline) 10 ml IV ASDIRECTED PRN PRN Reason: IV Use Discontinued Medications Bupivacaine HCl (Marcaine 0.5%) Confirm Administered Dose 30 ml .ROUTE .STK-MED ONE Stop: 10/02/19 12:21 Fentanyl (Sublimaze) Confirm Administered Dose 200 mcg .ROUTE .STK-MED ONE Stop: 10/02/19 12:21 Glycopyrrolate (Robinul) Confirm Administered Dose 0.2 mg .ROUTE .STK-MED ONE Stop: 10/02/19 12:22 Hydromorphone HCl (Dilaudid) Confirm Administered Dose 2 mg .ROUTE .STK-MED ONE Stop: 10/02/19 12:46 Piperacillin Sod/Tazobactam (Sod 4.5 gm/ Sodium Chloride) 100 mls @ 200 mls/hr IV STAT ONE Stop: 10/02/19 09:33 Last Admin: 10/02/19 09:27 Dose: Not Given Sodium Chloride (Normal Saline) 2,400 mls @ 2,400 mls/hr IV NOW STA Stop: 10/02/19 10:03 Last Admin: 10/02/19 09:26 Dose: 2,400 mls/hr Vancomycin HCl 1.6 gm/ (Dextrose/Water) 250 mls @ 167 mls/hr IV ONETIME ONE Stop: 10/02/19 10:33 Last Admin: 10/02/19 09:33 Dose: Not Given Piperacillin Sod/Tazobactam (Sod 4.5 gm/ Sodium Chloride) 100 mls @ 200 mls/hr IV STAT ONE Stop: 10/02/19 09:59 Last Admin: 10/02/19 09:30 Dose: 200 mls/hr Vancomycin HCl 1.5 gm/ Premix 300 mls @ 200.408 mls/hr IV ONETIME ONE Stop: 10/02/19 10:59 Last Admin: 10/02/19 09:34 Dose: 200.408 mls/hr Meropenem/Sodium Chloride 500 (mg/ Premix) 50 mls @ 100 mls/hr IV Q8H [facility] Last Admin: 10/02/19 15:48 Dose: Not Given Acetaminophen (Ofirmev) Confirm Administered Dose 100 mls @ as directed .ROUTE .STK-MED ONE Stop: 10/02/19 12:23 Meropenem 500 mg/ Sodium (Chloride) 50 mls @ 100 mls/hr IV Q8H EDUARD Last Admin: 10/03/19 07:04 Dose: 100 mls/hr Iopamidol (Isovue Multipack-370 (76%)) 100 ml IVPUSH ONETIME STA Stop: 10/02/19 10:46 Last Admin: 10/02/19 10:46 Dose: 100 ml Ketorolac Tromethamine (Toradol) Confirm Administered Dose 30 mg .ROUTE .STK- MED ONE Stop: 10/02/19 12:22 Midazolam HCl (Versed 1 Mg/Ml) Confirm Administered Dose 2 mg .ROUTE .STK-MED ONE Stop: 10/02/19 12:21 Ondansetron HCl (Zofran) Confirm Administered Dose 4 mg .ROUTE .STK-MED ONE Stop: 10/02/19 12:21 Propofol (Diprivan 20 Ml) Confirm Administered Dose 200 mg .ROUTE .STK-MED ONE Stop: 10/02/19 12:21 Sugammadex Sodium (Bridion) Confirm Administered Dose 200 mg .ROUTE .STK-MED ONE Stop: 10/02/19 12:23 - Exam General: Reports: Alert, Oriented Lungs: Reports: Normal Respiratory Effort Cardiovascular: Reports: Regular Rate GI/Abdominal Exam: Soft, Non-Tender, No Distention, No Mass, Other (Wound has no purulent material. Serosanguinous drainage. Good granulation tissue. ) Back Exam: Reports: Normal Inspection, Full Range of Motion Extremities: Normal Inspection
[2019-10-03] MEDS ORDERED: Ertapenem 1 GM in Sodium Chloride 0.9% 50 ML IV SCH (07:30)
--- NOTE | 2019-10-03 08:16 | PCM48HPAN ---
Post Anesthesia Note - EVALUATION WITHIN 48HRS OF ANESTHETIC Vital Signs in Normal Range: Yes Patient Participated in Evaluation: Yes Respiratory Function Stable: Yes Airway Patent: Yes Cardiovascular Function Stable: Yes Hydration Status Stable: Yes Pain Control Satisfactory: Yes Nausea and Vomiting Control Satisfactory: Yes Mental Status Recovered: Yes Vital Signs: Last Vital Signs Temp 36.9 C 10/03/19 04:00 Pulse 80 10/03/19 04:00 Resp 14 10/03/19 04:00 BP 103/61 10/03/19 04:00 Pulse Ox 97 10/03/19 04:00
[2019-10-03] MEDS: Acetaminophen/oxyCODONE 325-5 MG Tab PO PRN (10:54)
== END 2019-10-03 17:00 | disposition home or self-care (01) ==
LOC: MW.ED 08:56 → MW.SDS 12:00 → MW.MS 14:37
PROVIDERS: ADMIT Surgery; ATTEND Surgery
DX: T81.42XA Infection following a procedure, deep incisional surgical site, initial encounter (principal); Z20.828 Contact with and (suspected) exposure to other viral communicable diseases; Z90.49 Acquired absence of other specified parts of digestive tract
CPT/HCPCS: 10180; 36415; 71045; 74177; 80053; 81001; 83605; 85025; 85027; 85610; 85730; 86140; 87040; 87070; 87075; 87077; 87088; 87186; 87205; 87635; 93005; 96365; 96366; 96367; 96375; 99285; A9270; G0378; J0131; J1170; J1335; J2185; J2250; J2405; J2543; J2704; J3010; J3370; J3490; J7030; J7050; Q9967; 00400; 99291; J1885; U0002

== ENCOUNTER 2024-05-08 08:38 | Day surgery (SDC) | payer OTHER ==
[~2024-05-08 08:38] MED LIST: Albuterol 0.083% 2.5 MG/3 ML Neb Soln NEB PRN; HYDROmorphone 1 MG/ML Syringe IVPUSH PRN; Metoclopramide 10 MG/2 ML SDV IVPUSH PRN; Morphine 2 MG/ML SYRINGE IVPUSH PRN; Naloxone 0.4 MG/ML SDV IVPUSH PRN; Ondansetron 4 MG/2 ML SDV IVPUSH PRN; Phenylephrine HCl In 0.9% NaCl 1 MG/10 ML Syringe IVPUSH PRN; ceFAZolin 2 GM in Sodium Chloride 0.9% 50 ML IV ONE; fentaNYL 50 MCG/ML SDV IVPUSH PRN
[2024-05-08] MEDS: Lactated Ringers 1,000 ML IV SCH (10:27)
[2024-05-08] MEDS ORDERED: Dexamethasone 4 MG/ML 5 ML MDV ONE (10:27)
[2024-05-08] MEDS ORDERED: Ondansetron 4 MG/2 ML SDV ONE (10:27)
[2024-05-08] MEDS ORDERED: dexmedeTOMIDine HCl 200 MCG/2 ML SDV ONE (10:28)
[2024-05-08] MEDS ORDERED: Propofol 200 MG/20 ML SDV ONE (10:28)
[2024-05-08] MEDS ORDERED: Famotidine 20 MG/2 ML SDV ONE (10:28)
[2024-05-08] MEDS ORDERED: fentaNYL 100 MCG/2 ML SDV ONE ×2 (10:28→10:31)
[2024-05-08] MEDS ORDERED: Ropivacaine 0.5% 5 MG/ML 30 ML SDV ONE (10:28)
[2024-05-08] MEDS ORDERED: Lidocaine 2% 5 ML SDV ONE ×2 (10:30→10:32)
[2024-05-08] MEDS ORDERED: ceFAZolin 2 GM Vial ONE (11:34)
[2024-05-08] MEDS ORDERED: Ketorolac 30 MG/ML SDV ONE (11:35)
[2024-05-08] MEDS ORDERED: ePHEDrine 50 MG/ML SDV ONE (11:52)
== END 2024-05-08 16:00 | disposition home or self-care (01) ==
LOC: MW.SDS 08:38
PROVIDERS: ATTEND Orthopaedic Surgery
DX: S83.512A Sprain of anterior cruciate ligament of left knee, initial encounter (principal); X58.XXXA Exposure to other specified factors, initial encounter
CPT/HCPCS: 29888; J0131; J0690; J1100; J1885; J2405; J2704; J2795; J3010; J7120; 01400; 64447; J3490